=== PATIENT | male | born 2000 | race Caucasian/White ===

== ENCOUNTER 2024-05-29 19:02 | Emergency (ER) | payer OTHER, SELFPAY ==
[2024-05-29 19:03] VITALS: BP 130/92
--- NOTE | 2024-05-29 19:25 | ED.SKININJ ---
HPI-Injury
General
Chief Complaint: Musculo-Skeletal Complaint
Source: patient
Exam Limitations: none
Time Seen by Provider: 05/29/24 19:09
Nursing documentation reviewed up to this point in time: agreed with
History of Present Illness-Injury
Initial Injury comments:
24-year-old male dropped a metal wheel onto the distal aspect of his left index finger causing a deep laceration. Unsure of last tetanus immunization
Past History
Past History
ED Past Medical History: None
ED Past Surgical History: None
Social History
Tobacco: Non-smoker
Alcohol: Occasional
Personal: Single
Living: with family
Employment: Employed
Review of Systems
Review of Systems
Allergies reviewed?: Yes
All Other Systems: ROS reviewed and negative except as documented in HPI and ROS
Musculoskeletal: Reports other (Pain distal left index finger possible fracture)
Skin: Reports other (Laceration distal left index finger)
Neurological: Reports other
Skin Exam
Laceration
Left index finger at DIP joint:
Length in cm: 1.5
Orientation: horizontal
Type of Laceration: complex
Any active bleeding?: no active bleeding
Distal skin color and temperature: normal-warm & good color (Decreased sensation to sharp touch fingertip)
Phy Exam
Physical Exam
Physical Exam:
PHYSICAL EXAMINATION:
General: no apparent distress, not acutely ill
Neuro: alert and oriented.
Psychiatric: well kept. interactive and cooperative
Musculoskeletal: Moves with ease
Skin: Warm, pink.
Course
Orders/Labs/Results
Orders:
Orders
05/29/24 19:24
Tetanus/Diphth/Acelpertussis [Adacel] 0.5 ml IM .ONCE ONE
Finger(s)/Thumb 2 View Lt [CR Finger(s)/thumb Min 2 Vw Lt] Urgent
Comment:
Reason For Exam: partial amputation distal finger
Indicate Which Finger:: Index Finger
05/29/24 19:45
CeFAZolin 1 GRAM [Ancef] 1 gram in 5 ml IV NOW
05/29/24 21:33
0.9% Sodium Chloride 500 ml [Nss] 500 ml IV BOLUS
Vital Signs
Initial and Last Documented VS:
Initial Vital Signs
Temp Pulse Resp BP Pulse Ox
97.9 F 86 24 130/92 96
05/29/24 19:03 05/29/24 19:03 05/29/24 19:03 05/29/24 19:03 05/29/24 19:03
Last Documented Vital Signs
Temp Pulse Resp BP Pulse Ox
97.9 F 86 24 130/92 96
05/29/24 19:03 05/29/24 19:03 05/29/24 19:03 05/29/24 19:03 05/29/24 19:03
Procedures
Laceration Closure
Left distal index finger:
Status of Wound: clean
Size of Wound in cm: 2.5
Description of Wound Edges: sharp
Preparation: cleaned with Betadine (soft surgical scrub)
Anesthesia: Marcaine
Revision/Debridement: routine- no revision
Wound exploration: no tendon involvement (distal to tendon, across mid nailbed and lateral to finger pad)
Type of Closure: single layer closure and interrupted sutures
Skin Closure Material: 3-0 prolene (#5 to skin of distal finger) and 5-0 vicryl (3 across nailbed laceration)
Number of sutures: 8
Additional information:
ATB ointment, Vaseline gauze and tubegauze dressing applied
MDM/Problems Addressed
Differential Diagnosis Includes:
Open fracture, laceration
MDM/Problems Addressed:
24-year-old male dropped a metal wheel onto the distal aspect of his left index finger causing a deep laceration. Unsure of last tetanus immunization
After adequate digital block anesthesia, standing at sink hand cleansed with soft betadine surgical scrub.
Wound sutured
Dressing applied
Xray index finger:
Tdap updated
Pt from [facility], will f/u with orthopedic or hand specialist there.
Disc of xray sent with him
Ancef 1 gm IV given
Rx for Keflex 500 mg QID x 7 days sent to his pharmacy
*Critical Care Note
Total Time (30-74mins, 75-104mins- exclusive of procedures): Not Applicable
ED Attending Note
-
Portions of this chart may have been created with voice recognition software.� Occasional wrong word or��sound alike� substitutions may have occurred due to the inherent limitations of voice recognition software.
Discharge Plan
Departure
Patient Disposition: Home (Routine Discharge)
Date of Disposition: 05/29/24
Time of Disposition: 21:20
Patient with high blood pressure during this ER visit?: No
Condition: Good
Discharge Problem:
Open fracture of distal phalanx of left index finger
Instructions: Finger Fracture ED, Laceration Repair With Stitches ED
Prescriptions:
New
cephalexin 500 mg capsule
500 mg PO QID 7 Days Qty: 28 0RF
Referrals:
Your, orthopedic or hand specialist doctor [Other] - Call in 1-3 days for appt
UNKNOWN - PT DOES,NOT KNOW [Family Provider] -
Activity Restrictions/Additional Instructions:
As we discussed, Ibuprofen 600 mg every 6 hours as needed for pain.
Elevating the hand slightly higher than your heart will help minimize throbbing pain.
I sent a prescription to your pharmacy for Keflex 500 mg 4 times a day for 7 days.
Remove the dressing Sunday, wash the area with soap and water, rinse well, dry. Apply antibiotic ointment, band aid and the aluminum finger splint I gave you for protection.
Do this daily.
Seek medical care immediately for signs of infection: increasing pain, redness, swelling, pus drainage, red streak up the arm or fever.
See your orthopedic doctor in 12-14 days in [place] for suture removal and recheck.
Interventions
Interventions:
*Risk Screen - Suicide Last Done: 05/29/24 19:03
*General Assessment Last Done: 05/29/24 19:43
*Neglect/Abuse Screening Last Done: 05/29/24 19:03
*ED COVID-19 Vaccine History Last Done: 05/29/24 21:36
*Nursing Disposition Last Done: 05/29/24 21:36
ED-Musculoskeletal Assessment Last Done: 05/29/24 19:21
Discharge Date and Time
Discharge Date/Time: 05/29/24 21:36
Print Language: MOLDOVAN
[2024-05-29 19:42] VITALS: BMI 26.0
[2024-05-29] MEDS: ANCEF 5 IV (20:05)
[2024-05-29] MEDS: ADACEL 0.5 ML IM (20:05)
== END 2024-05-29 21:36 | disposition home or self-care (01) ==
LOC: EMR 19:02
PROVIDERS: EMERGENCY PHYSICIAN Emergency Medicine
DX: S62.631B Displaced fracture of distal phalanx of left index finger, initial encounter for open fracture (principal); W22.8XXA Striking against or struck by other objects, initial encounter; Z23 Encounter for immunization
CPT/HCPCS: 99284; 96374; 12001; 90471; 73140; 90715